=== PATIENT | female | born 1975 | race Caucasian/White ===

== ENCOUNTER 2017-01-06 07:52 | Day surgery (SDC) | payer MEDICAID, OTHER ==
[2017-01-05 17:18] VITALS: BMI 22.0
[2017-01-06] VITALS (15 sets, daily range): BP systolic 107–123; BP diastolic 60–74; PULSE 67–106; RESP 10–21; Ht 170.2 cm; Wt 65.4 kg
[~2017-01-06] VITALS: Ht 170.2 cm; Wt 65.4 kg
[~2017-01-06 07:52] MED LIST: CEFAZOLIN 2 GM/50 ML (PMX) 50 ML IVPB SCH; INTESTINAL FORMULA; SOD CHLORIDE 0.9% 1,000 ML IV SCH
[2017-01-06] MEDS ORDERED: BUPIVACAINE 0.25% (MPF) 30 ML INJ ONE (10:04)
[2017-01-06] MEDS ORDERED: PROPOFOL 20 ML ONE (10:11)
[2017-01-06] MEDS ORDERED: MIDAZOLAM 1 MG/ML 2 ML INJ ONE (10:11)
[2017-01-06] MEDS ORDERED: LIDOCAINE 1% (MDV) 20 ML INJ ONE (10:12)
[2017-01-06] MEDS ORDERED: FENTAnyl 50 MCG/ML VIAL ONE (10:12)
[2017-01-06] MEDS ORDERED: CEFAZOLIN 1 GM INJ ONE ×2 (10:24)
[2017-01-06] MEDS ORDERED: PHENYLephrine (100 MCG/ML) 5ML SYG ONE (10:30)
[2017-01-06] MEDS ORDERED: ONDANSETRON 4 MG INJ ONE ×2 (10:36→11:39)
[2017-01-06] MEDS ORDERED: DEXAMETHASONE 4 MG/ML 1 ML INJ ONE (10:36)
[2017-01-06] MEDS ORDERED: EPHEDrine SULFATE 50 MG/5 ML SYG ONE (10:41)
--- NOTE | 2017-01-06 11:11 | OPR ---
Date/Time of Note Date/Time of Note DATE: 01/06/17 TIME: 11:07 Operative Report Procedure Date: Jan 06, 2017 Preoperative Diagnosis hemorrhoids Postoperative Diagnosis same Operation/Procedure Performed 1. recurrent internal and external complex hemorrhoidectomy x 2 of left lateral and right posterior column 2. rigid proctoscopy 3. 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 She requests surgical excision. Risks alternatives benefits and personnel were discussed the patient. Patient expressed understanding and consents to the operation. Procedure Description Patient is taken to the OR and prepped and draped in usual sterile fashion. Surgical timeout was performed. IV antibiotics given. Rigid proctoscopy is performed. Prep was fair. There is no evidence of any masses or lesions. Attention was then paid to the left lateral hemorrhoid. [id number] 3-0 Vicryl sutures placed into the left lateral internal hemorrhoidal complex. The internal/external hemorrhoidal complex was then excised using 15 blade and hand- held LigaSure. There is good hemostasis. Attention was then paid to the right posterior hemorrhoidal complex. [id number] 3-0 Vicryl suture was placed into the internal hemorrhoidal artery. The external and internal hemorrhoidal complex was then excised with a 15 blade and had a LigaSure. There is good hemostasis. Therapeutic subcutaneous local anesthesia was injected throughout the anal mucosa. Dry dressings were applied. Isak GILES Jan 06, 2017 11:11
[2017-01-06] MEDS ORDERED: HYDROmorphONE (0.2 MG/ML) 10ML SYG IV PRN (11:30)
[2017-01-06] MEDS ORDERED: HYDROCODONE/APAP (5/325) TAB PO ONE (11:30)
[2017-01-06] MEDS ORDERED: morphine (1 MG/ML) 10ML SYRINGE IV PRN (11:30)
[2017-01-06] MEDS ORDERED: HYDROmorphONE (0.2 MG/ML) 10ML SYG IV ONE (11:39)
[2017-01-06] MEDS: HYDROmorphONE (0.2 MG/ML) 10ML SYG IV PRN ×4 (11:48→12:06)
[2017-01-06] MEDS: FENTAnyl 50 MCG/ML VIAL IV PRN ×2 (11:53→11:58)
[2017-01-06] MEDS: ONDANSETRON 4 MG INJ IV PRN ×2 (11:53→15:31)
[2017-01-06] MEDS ORDERED: MEPERIDINE 25 MG INJ ONE (12:12)
[2017-01-06] MEDS ORDERED: MEPERIDINE 25 MG INJ IV PRN (12:30)
== END 2017-01-06 17:30 | disposition home or self-care (01) ==
LOC: SDS 07:52
PROVIDERS: ATTEND Surgery
DX: K64.8 Other hemorrhoids (principal); K64.4 Residual hemorrhoidal skin tags
CPT/HCPCS: 46260; 88302; J0690; J1100; J1170; J2175; J2250; J2270; J2405; J3010; Z7512; Z7610; J2370